=== PATIENT | male | born 1950 | race African-American/Black ===

== ENCOUNTER 2019-11-26 10:44 | Emergency (ER) | payer MEDICARE, MEDICAID ==
[~2019-11-26] VITALS: Ht 175.3 cm; Wt 78.9 kg
[2019-11-26 11:06] VITALS: BP 139/88
[2019-11-26] MEDS ORDERED: METFORMIN HCL500 M1 ORAL (11:10)
[2019-11-26] MEDS ORDERED: ZOCOR20 M1 ORAL (11:10)
[2019-11-26 11:17] VITALS: BP 130/84
--- NOTE | 2019-11-28 06:37 | Emergency Room Report ---
History of Present Illness General Chief Complaint: Medication Refill Source: Patient Present Illness HPI 69-year-old male presents ED for medication refill. States he needs a refill of his metformin and simvastatin. Ran out a few days ago. Is unable to get PMD appointment at this time. States he feels well. Denies fevers or chills. Denies cough runny nose or congestion. No other aggravating relieving factors. Denies any other associated symptoms Allergies: Coded Allergies: No Known Allergies (Unverified , 11/26/19) COVID-19 Screening Contact w/high risk pt: No Recent Travel to affected area: No Experienced COVID-19 symptoms?: No Patient History Past Medical History: DM Past Surgical History: none Pertinent Family History: none Social History: Denies: smoking, alcohol use, drug use Immunizations: UTD Reviewed Nursing Documentation: PMH: Agreed; PSxH: Agreed Nursing Documentation-PMH Past Medical History: No History, Except For Hx Diabetes: Yes Review of Systems All Other Systems: negative except mentioned in HPI Physical Exam Vital Signs Date Time Temp Pulse Resp B/P (MAP) Pulse Ox O2 Delivery O2 Flow Rate FiO2 11/26/19 11:00 98.1 89 17 139/88 (105) 98 Room Air Sp02 EP Interpretation: reviewed, normal General Appearance: no apparent distress, alert, GCS 15, non-toxic Head: normocephalic, atraumatic Eyes: bilateral eye normal inspection, bilateral eye PERRL ENT: hearing grossly normal, normal pharynx, no angioedema, normal voice Neck: full range of motion, supple/symm/no masses Respiratory: chest non-tender, lungs clear, normal breath sounds, speaking full sentences Cardiovascular #1: regular rate, rhythm, no edema Cardiovascular #2: 2+ carotid (R), 2+ carotid (L), 2+ radial (R), 2+ radial (L) , 2+ dorsalis pedis (R), 2+ dorsalis pedis (L) Gastrointestinal: normal bowel sounds, non tender, soft, non-distended, no guarding, no rebound Rectal: deferred Genitourinary: normal inspection, no CVA tenderness Musculoskeletal: back normal, normal range of motion, gait/station normal, non- tender Neurologic: alert, motor strength/tone normal, oriented x3, sensory intact, responsive, speech normal Psychiatric: judgement/insight normal, memory normal, mood/affect normal, no suicidal/homicidal ideation Reflexes: 3+ bicep (R), 3+ bicep (L), 3+ tricep (R), 3+ tricep (L), 3+ knee (R) , 3+ knee (L) Lymphatic: no adenopathy Medical Decision Making Diagnostic Impression: Primary Impression: Encounter for medication refill ER Course 69-year-old male presents to ED refill of his medication. takes metformin and simvastatin hospital course: After initial history physical exam reveals elderly male in no acute distress. Physical exam unremarkable. I discussed with patient. Will provide refills of his metformin and simvastatin as PMD is unavailable. Safe for discharge for close outpatient follow-up Diagnosis-encounter for medication refill Stable and discharged to home with prescription for simvastatin and metformin. Followup with PMD. Return to ED if symptoms recur or worsen Last Vital Signs Date Time Temp Pulse Resp B/P (MAP) Pulse Ox O2 Delivery O2 Flow Rate FiO2 11/26/19 11:17 98.0 84 18 130/84 99 Room Air Status: improved Disposition: HOME, SELF-CARE Condition: Stable Scripts Metformin Hcl* (METFORMIN HCL*) 500 Mg Tablet 500 MG ORAL TWICE A DAY, #60 TAB Prov: Simón Jacobo MD 11/26/19 Simvastatin (ZOCOR) 20 Mg Tablet 20 MG ORAL BEDTIME, #30 TAB Prov: Simón Jacobo MD 11/26/19 Referrals: NON PHYSICIAN (PCP) Patient Instructions: Medicine Refill at the Emergency Department Simón Jacobo MD Nov 28, 2019 06:37
== END 2019-11-26 11:17 | disposition home or self-care (01) ==
LOC: EMR 11:10
DX: Z76.0 Encounter for issue of repeat prescription (principal); Z79.84 Long term (current) use of oral hypoglycemic drugs; E11.9 Type 2 diabetes mellitus without complications
CPT/HCPCS: 99282

== ENCOUNTER 2019-12-24 10:15 | Emergency (ER) | payer MEDICARE, MEDICAID ==
[~2019-12-24] VITALS: Ht 172.7 cm; Wt 78.9 kg
[~2019-12-24 10:15] MED LIST: METFORMIN HCL500 M1 ORAL; ZOCOR20 M1 ORAL
--- NOTE | 2019-12-24 10:28 | NUR ---
ED Nurse Note: ambulated in to ED due to right foot pain. Per pt, he got injured (bumped into something) 2 weeks ago. Breathing normal/even/unlabored. Skin warm/dry/intact. CMS intact. Hx DM and high cholesterol. NAD noted.
[2019-12-24] MEDS ORDERED: ASPIRIN81 MG ORAL (10:34)
[2019-12-24] MEDS ORDERED: BLOOD GLUCOSE1 EAC1 MC (10:35)
--- NOTE | 2019-12-24 10:36 | Emergency Room Report ---
History of Present Illness General Chief Complaint: Pain Source: Patient Present Illness HPI 69-year-old male past medical history of diabetes, hypertension resents with right foot pain, fourth toe pain injured 2 weeks ago when he stubbed it against the shower he endorses sharp pain minimal severity aggravated with movement alleviated with rest patient presents for evaluation Allergies: Coded Allergies: No Known Allergies (Unverified , 11/26/19) COVID-19 Screening Contact w/high risk pt: No Recent Travel to affected area: No Experienced COVID-19 symptoms?: No Patient History Past Medical History: see triage record Reviewed Nursing Documentation: PMH: Agreed; PSxH: Agreed Nursing Documentation-PMH Hx Diabetes: Yes Review of Systems All Other Systems: negative except mentioned in HPI Physical Exam General Appearance: well appearing, no apparent distress Head: normocephalic, atraumatic ENT: hearing grossly normal, normal voice Neck: full range of motion, supple Respiratory: no respiratory distress, speaking full sentences Musculoskeletal: other - Right foot: 2+ PT DP, swelling of the fourth toe, tenderness to palpation, fires EHL, 5-5 plantar dorsiflexion of the foot patient is able to ambulate Neurologic: alert, normal gait Psychiatric: mood/affect normal Skin: no rash Medical Decision Making Diagnostic Impression: Primary Impression: Toe fracture, right Qualified Codes: S92.911A - Unspecified fracture of right toe(s), initial encounter for closed fracture ER Course 69-year-old male presents with right foot pain, patient differential includes toe fracture, contusion X-ray shows a fracture of the fourth toe Walking boot given disposition home with return precautions follow-up with PCP Other X-Ray Diagnostic Results Other X-Ray Diagnostic Results : X-Ray ordered: Right foot # of Views/Limited Vs Complete: 3 View Indication: Pain EP Interpretation: Yes Interpretation: other - Right fourth toe fracture Impression: Other - Right fourth toe fracture Electronically Signed by: Kevin Doan MD Disposition: HOME, SELF-CARE Condition: Stable Scripts Blood-Glucose Meter (BLOOD GLUCOSE METER) 1 Each Each EACH , #1 Prov: Kevin Doan MD 12/24/19 Referrals: Orthopedic Urgent Care Patient Instructions: Toe Fracture, [id number] Additional Instructions: The patient was provided with discharge instructions, notified to follow-up with a primary care doctor and or specialist in the next 24-48 hours, and to return to the ED if they have worsening of their symptoms. Please note that this report is being documented using DRAGON technology. This can lead to erroneous entry secondary to incorrect interpretation by the dictating instrument. Kevin Doan MD December 24, 2019 10:36
--- NOTE | 2019-12-24 11:10 | NUR ---
ED Nurse Note: xray at bedside
[2019-12-24 11:28] VITALS: BP 132/76
--- NOTE | 2019-12-24 11:29 | NUR ---
ED Nurse Note: Pt cleared by health care Provider for discharge. DC instructions/prescription was given and explained to pt and verbalized understanding of teachings. All medical deviecs such as ID band removed. Pt is AAO x4, ambulatory with walking book on right foot and left with all personal belongings. NAD noted.
--- NOTE | 2019-12-24 11:34 | Diagnostic Imaging Report ---
EXAM: XR Right Foot Complete, 3 or More Views CLINICAL HISTORY: PAIN TECHNIQUE: Frontal, lateral and oblique views of the right foot. COMPARISON: No relevant prior studies available. FINDINGS: Bones/joints: Incidental note of small plantar calcaneal bony spur. No visible fracture or dislocation. No osseous erosions. Joint spaces remain within normal limits. Subcentimeter accessory ossicle adjacent to the medial base of the navicular. Soft tissues: Unremarkable. No radiopaque foreign body. IMPRESSION: 1. No acute findings. 2. Incidental note of small plantar calcaneal bony spur.
== END 2019-12-24 11:30 | disposition home or self-care (01) ==
LOC: EMR 10:30
DX: S92.911A Unspecified fracture of right toe(s), initial encounter for closed fracture (principal); W22.8XXA Striking against or struck by other objects, initial encounter; Y92.9 Unspecified place or not applicable; E11.9 Type 2 diabetes mellitus without complications; I10 Essential (primary) hypertension
CPT/HCPCS: 82962; 99283

== ENCOUNTER 2020-02-14 08:49 | Emergency (ER) | payer MEDICARE, MEDICAID ==
[~2020-02-14] VITALS: Ht 170.2 cm; Wt 78.9 kg
[~2020-02-14 08:49] MED LIST changes: +ASPIRIN81 MG ORAL; +BLOOD GLUCOSE1 EAC1 MC
--- NOTE | 2020-02-14 09:09 | NUR ---
ED Nurse Note:pt. came from home with dARKER discoloration of his 4th right toe, skin is intact, hx of DM, pt. is A/Ox4 ambulatory, no c/o pain or recent injury
--- NOTE | 2020-02-14 10:19 | Emergency Room Report ---
History of Present Illness General Chief Complaint: Lower Extremity Injury Source: Patient Present Illness HPI 69-year-old male presents for evaluation of his toe. States he was here in December and had a toe fracture on his right foot. Was placed in walking boot and discharged. States that pain is resolved but states there is discoloration to his toe so he was worried. Denies pain. Is able to walk without difficulty. Denies fevers or chills. Denies any discharge. No other aggravating relieving factors. Denies any other associated symptoms Allergies: Coded Allergies: No Known Allergies (Unverified , 11/26/19) COVID-19 Screening Contact w/high risk pt: No Recent Travel to affected area: No Experienced COVID-19 symptoms?: No COVID-19 Testing performed DIVISION MANAGER: No Patient History Past Medical History: DM Past Surgical History: none Pertinent Family History: none Social History: Denies: smoking, alcohol use, drug use Immunizations: UTD Reviewed Nursing Documentation: PMH: Agreed; PSxH: Agreed Nursing Documentation-PMH Past Medical History: No History, Except For Hx Diabetes: Yes Review of Systems All Other Systems: negative except mentioned in HPI Physical Exam Vital Signs Date Time Temp Pulse Resp B/P (MAP) Pulse Ox O2 Delivery O2 Flow Rate FiO2 02/14/20 08:59 98.2 60 16 131/80 (97) 98 Room Air Sp02 EP Interpretation: reviewed, normal General Appearance: no apparent distress, alert, GCS 15, non-toxic Head: normocephalic Eyes: bilateral eye normal inspection, bilateral eye PERRL ENT: normal ENT inspection Neck: normal inspection Respiratory: normal inspection Cardiovascular #1: normal inspection Gastrointestinal: normal inspection Rectal: deferred Genitourinary: no CVA tenderness Musculoskeletal: back normal, normal range of motion, gait/station normal, non- tender, other - discoloration of R 4th toe Neurologic: alert, motor strength/tone normal, oriented x3, sensory intact, responsive, speech normal Psychiatric: normal inspection Skin: no rash Lymphatic: normal inspection Medical Decision Making Diagnostic Impression: Primary Impression: Toe fracture Qualified Codes: S92.505D - Nondisplaced unspecified fracture of left lesser toe(s), subsequent encounter for fracture with routine healing ER Course Hospital Course 69-year-old male presents with reevaluation of his toe. Status post toe fracture Differential diagnoses include: Fracture, dislocation, sprain, contusion Clinical course Patient placed on stretcher. After initial history physical exam reveals elderly male in no acute distress. There is some slight discoloration/ ecchymosis to the right fourth toe. There is full range of motion. No pain on palpation. Sensations intact. Warm to touch. I discussed findings with patient. I am not concerned for infection or gangrene or loss of circulation. Patient is a diabetic which was why he was concerned. Patient is requesting an following x-ray. X-ray shows a fracture which appears to be healing to the right fourth toe. I explained my findings to patient. Patient will need follow-up with orthopedic/ podiatry. I will provide referral. Safe for discharge for close outpatient follow-up Diagnosis - toe fx Stable and discharged to home. apply ice, keep elevated. weight bear as tolerated. Followup with podiatry/ortho. Return to ED if symptoms recur or worsen Other X-Ray Diagnostic Results Other X-Ray Diagnostic Results : X-Ray ordered: R foot # of Views/Limited Vs Complete: 3 View Indication: Pain EP Interpretation: Yes Interpretation: no dislocation, no soft tissue swelling, other - healing fx R 4th toe Impression: Other - healing fx R 4th toe Electronically Signed by: Electronically signed by Simón Jacobo MD Last Vital Signs Date Time Temp Pulse Resp B/P (MAP) Pulse Ox O2 Delivery O2 Flow Rate FiO2 02/14/20 08:59 98.2 60 16 131/80 (97) 98 Room Air Status: improved Disposition: HOME, SELF-CARE Condition: Stable Referrals: NON PHYSICIAN (PCP) Simón Jacobo MD Feb 14, 2020 10:19
[2020-02-14 10:36] VITALS: BP 131/80
--- NOTE | 2020-02-14 10:38 | NUR ---
ED Nurse Note: Pt cleared by health care Provider for discharge. DC instructions/prescription was given and explained to pt and verbalized understanding of teachings. All medical deviecs such as ID band removed. Pt is AAO x4, ambulatory and left with all personal belongings.
--- NOTE | 2020-02-14 15:05 | Diagnostic Imaging Report ---
Indication: Reason For Exam: PAIN Technique: Right foot pain, history of fourth toe fracture. views foot Comparison: 12/24/2019 Findings: Oblique lucency in the fourth proximal phalanx corresponds to the previously demonstrated acute fracture. There is some callus formation evident. There is hallux valgus and mild metatarsus adductus. No new fractures. No dislocations. The joint spaces are preserved. Impression: Interim partial healing but persistence of previously reported fourth proximal phalangeal fracture noted. No acute bony trauma
== END 2020-02-14 10:44 | disposition home or self-care (01) ==
LOC: EMR 09:20
DX: S92.505D Nondisplaced unspecified fracture of left lesser toe(s), subsequent encounter for fracture with routine healing (principal); X58.XXXD Exposure to other specified factors, subsequent encounter; E11.9 Type 2 diabetes mellitus without complications
CPT/HCPCS: 99283

== ENCOUNTER 2020-05-17 10:00 | Emergency (ER) | payer MEDICARE, MEDICAID ==
[~2020-05-17] VITALS: Ht 172.7 cm; Wt 74.8 kg
--- NOTE | 2020-05-17 10:10 | NUR ---
ED Nurse Note: Pt ambulated to ED from home d/t LT anterior knee pain that has been going on for a week. Pt denies any trauma nor injury on the affected site. Pt is AOx4, calm and cooperative, VSS, on RA, afebrileon triage.
[2020-05-17 10:15] VITALS: BP 115/72
[2020-05-17 10:36] VITALS: BP 118/74
--- NOTE | 2020-05-17 10:36 | NUR ---
ER DISCHARGE NOTE: Patient is cleared to be discharged per ERMD, pt is aox4, on room air, with stable vital signs. pt was given dc and prescription instructions, pt was able to verbalize understanding, pt id band removed. pt is able to ambulate with steady gait. pt took all belongings.
[2020-05-17] MEDS ORDERED: Acetaminophen 500mg (ES) tab ORAL ONE (10:45)
--- NOTE | 2020-05-17 11:22 | Emergency Room Report ---
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, he endorses achy knee pain aggravated with movement alleviated with rest severity is moderate, intermittent patient presents for evaluation and treatment Allergies: Coded Allergies: No Known Allergies (Unverified , 11/26/19) COVID-19 Screening Contact w/high risk pt: No Recent Travel to affected area: No Experienced COVID-19 symptoms?: No COVID-19 Testing performed LADDERMAN: No Patient History Past Medical History: see triage record Reviewed Nursing Documentation: PMH: Agreed; PSxH: Agreed Nursing Documentation-PMH Hx Diabetes: Yes Review of Systems All Other Systems: negative except mentioned in HPI Physical Exam Vital Signs Date Time Temp Pulse Resp B/P (MAP) Pulse Ox O2 Delivery O2 Flow Rate FiO2 05/17/20 10:04 98.4 68 18 115/72 (86) 97 Room Air General Appearance: well appearing, no apparent distress Head: normocephalic, atraumatic ENT: hearing grossly normal, normal voice Neck: full range of motion, supple Respiratory: no respiratory distress, speaking full sentences Musculoskeletal: other - Left knee: Valgus varus stress negative, anterior posterior drawer negative, no effusion noted no ballottement he is able to a mbulate Neurologic: alert, normal gait Psychiatric: mood/affect normal Skin: no rash Medical Decision Making Diagnostic Impression: Primary Impression: Knee pain, left Qualified Codes: M25.562 - Pain in left knee Additional Impression: Osteoarthritis Qualified Codes: M17.12 - Unilateral primary osteoarthritis, left knee ER Course 69-year-old male presents with left knee pain, differential diagnosis includes osteoarthritis, knee strain fracture dislocation X-ray consistent with osteoarthritis Pain control with Tylenol/Motrin, follow-up with PCP Follow-up with PCP Other X-Ray Diagnostic Results Other X-Ray Diagnostic Results : X-Ray ordered: Knee # of Views/Limited Vs Complete: 3 View Indication: Pain EP Interpretation: Yes Interpretation: no dislocation, no fractures Impression: Other - Osteoarthritis noted Electronically Signed by: Kevin Doan MD Last Vital Signs Date Time Temp Pulse Resp B/P (MAP) Pulse Ox O2 Delivery O2 Flow Rate FiO2 05/17/20 10:15 98.4 18 115/72 97 Room Air 05/17/20 10:04 68 Disposition: HOME, SELF-CARE Condition: Stable Scripts Naproxen* (NAPROSYN*) 250 Mg Tablet 500 MG ORAL TWICE A DAY, #60 TAB 0 Refills Prov: Kevin Doan MD 05/17/20 Acetaminophen (Tylenol) 325 Mg Tablet 650 MG ORAL Q6H PRN for Prn Pain/Headache/Temp > 101, #30 TAB 0 Refills Prov: Kevin Doan MD 05/17/20 Referrals: NOT CHOSEN IPA/,REFERRING (PCP) Patient Instructions: Knee Pain, [id number], Osteoarthritis Additional Instructions: The patient was provided with discharge instructions, notified to follow-up with a primary care doctor and or specialist in the next 24-48 hours, and to return to the ED if they have worsening of their symptoms. Please note that this report is being documented using DRAGON technology. This can lead to erroneous entry secondary to incorrect interpretation by the dictating instrument. Kevin Doan MD May 17, 2020 11:22
--- NOTE | 2020-05-17 11:25 | NUR ---
ED Nurse Note: x-ray done
[2020-05-17] MEDS ORDERED: NAPROXEN250 MG ORAL (11:31)
[2020-05-17] MEDS ORDERED: TYLENOL325 MG ORAL (11:31)
--- NOTE | 2020-05-17 15:33 | Diagnostic Imaging Report ---
Indication: Reason For Exam: PAIN Technique: 3 views of the left knee Comparison: None Findings: No acute fractures. No dislocations. The joint spaces are preserved Impression: Negative
== END 2020-05-17 10:36 | disposition home or self-care (01) ==
LOC: EMR 10:15
DX: M17.12 Unilateral primary osteoarthritis, left knee (principal); M25.562 Pain in left knee; E11.9 Type 2 diabetes mellitus without complications
CPT/HCPCS: 99283

== ENCOUNTER 2020-09-17 10:27 | Emergency (ER) | payer MEDICARE, MEDICAID ==
[~2020-09-17] VITALS: Ht 175.3 cm; Wt 78.9 kg
[~2020-09-17 10:27] MED LIST changes: +NAPROXEN250 MG ORAL; +TYLENOL325 MG ORAL
--- NOTE | 2020-09-17 10:49 | NUR ---
ED Nurse Note: Pt has pain on bottom of R foot for a few weeks. He has redness on foot. He is diabetic and wants to make sure its not worse. Pt is alert and orientedx4, ambulatory. He has been seen by HARRY.
[2020-09-17 10:50] VITALS: BP 130/76
--- NOTE | 2020-09-17 11:01 | Emergency Room Report ---
History of Present Illness General Chief Complaint: Pain Source: Patient Present Illness HPI Patient presents with several days of right bottom of his foot pain. He believes is associated with his work of standing and being in boots. He denies any known trauma. He denies a history of gout. The heel is tender also. He rates the pain 3/10 at worst after he has been on his feet for a long period of time. There is no calf pain. There is no ankle pain. He states that occasionally his toes have some tingling but denies any loss of sensation that is constant. Patient is a history of diabetes. He denies any fevers or chills. He is on oral medication and has not checked his blood sugar for a while. He recently had left knee pain and was evaluated here. X-ray was taken which revealed osteoarthritis. He was given a prescription for Naprosyn and Tylenol. The knee is not bothering him at this time. The patient denies exposure to Covid positive contacts. 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 Nursing Documentation: PMH: Agreed; PSxH: Agreed Nursing Documentation-PMH Past Medical History: No History, Except For Hx Diabetes: Yes Review of Systems Constitutional: Reports: see HPI Cardiovascular: Denies: chest pain Gastrointestinal: Denies: nausea, vomiting Musculoskeletal: Reports: see HPI Skin: Denies: rash Neurological: Reports: see HPI Endocrine: Reports: see HPI Physical Exam Vital Signs Date Time Temp Pulse Resp B/P (MAP) Pulse Ox O2 Delivery O2 Flow Rate FiO2 09/17/20 10:31 98.4 85 17 136/78 (97) 98 Room Air Sp02 EP Interpretation: reviewed, normal General Appearance: well appearing, no apparent distress, GCS 15 Head: normocephalic Eyes: bilateral eye normal inspection, bilateral eye PERRL, bilateral eye EOMI ENT: other - Wearing a mask Neck: full range of motion Respiratory: normal inspection Cardiovascular #1: regular rate, rhythm Cardiovascular #2: 2+ radial (R), 2+ dorsalis pedis (R) Gastrointestinal: normal inspection Musculoskeletal: gait/station normal, normal range of motion, digits/nails normal, tenderness - Calcaneus and plantar fascia Neurologic: alert, sensory intact, grossly normal Psychiatric: mood/affect normal Skin: normal color, no rash, warm/dry Medical Decision Making Diagnostic Impression: Primary Impression: Plantar fasciitis of right foot ER Course Patient presents with nontraumatic right foot pain with history of diabetes. Differential includes sprain, strain, gout, plantar fasciitis, heel spur amongst others. There is no evidence of diabetic neuropathy. Based on the pattern of the pain and on physical exam the diagnosis is clinical. An Accu-Chek will be obtained. There is no evidence of cellulitis or gout. Patient declines pain medication at this time. Accu-Chek 162. Discussed treatment plan with patient. Discussed work status also with patient. Patient stable for outpatient observation and treatment. Suggested the patient follow-up with a shale miner blasting. Last Vital Signs Date Time Temp Pulse Resp B/P (MAP) Pulse Ox O2 Delivery O2 Flow Rate FiO2 09/17/20 11:20 98.4 83 16 126/75 99 Room Air Status: unchanged Disposition: HOME, SELF-CARE Condition: Improved Zander Bravo MD Sep 17, 2020 11:01
--- NOTE | 2020-09-17 11:19 | NUR ---
ER DISCHARGE NOTE: Patient is cleared to be discharged per ERMD, pt is aox4, on room air, with stable vital signs. pt was given dc and prescription instructions, pt was able to verbalize understanding, pt id band removed. pt is able to ambulate with steady gait. pt took all belongings. Pt educated regardign plantar fasciitis.
[2020-09-17 11:20] VITALS: BP 126/75
== END 2020-09-17 11:32 | disposition home or self-care (01) ==
LOC: EMR 11:14
DX: M72.2 Plantar fascial fibromatosis (principal); E11.9 Type 2 diabetes mellitus without complications; M19.90 Unspecified osteoarthritis, unspecified site; F17.200 Nicotine dependence, unspecified, uncomplicated
CPT/HCPCS: 99281